=== PATIENT | female | born 2005 | race Caucasian/White ===

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

== ENCOUNTER 2024-05-16 16:50 | Emergency (ER) | payer BC, SELFPAY ==
--- OUTSIDE RECORDS SUMMARY | 2024-05-16 16:52 | XMS_ITS | Encounter Summary ---
Author Organization [facility] Address [address] [address] Care Team Providers Care Food Processor Name Role Phone Asked, Do Not Notify Primary Care Provider Unava ilable Encounter Details Date Type Department Care Team (Late st Contact Info) Description 10/01/2017 External Data Docume ntation Only Social History Tobacco Use Types Packs/Day Years Used Date Smoking Tobacco: Never Assessed Comments Unknown Sex and Gender Information Value Date Recorded Sex Assigned at Not on file Legal Sex Female 8:27 PM MDT Gender Identity Not on file Sexual Orientation Not on file documented as of this encounter Plan of Treatment Not on file documented as of this encounter Visit Diagnoses Not on filedocumented in this encounter Care Teams Food Processor Relationship Specialty Start Date End Date Asked, Do Not Notify PCP - General Internal Medicine 07/18/23 documented as of this encounter
--- OUTSIDE RECORDS SUMMARY | 2024-05-16 16:52 | XMS_ITS | Encounter Summary ---
Author Organization [facility] Address [address] [address] Care Team Providers Care Technical Cable Jointer Name Role Phone Asked, Do Not Notify Primary Care Provider Unava ilable Reason for Visit * Reason Comments Schedule Appointment Encounter Details Date Type Department Care Team (Late st Contact Info) Description 06/18/2023 Nurse Triage [facility] - [address] [id number] Ryan Pendleton MD [address] [facility] [address] [place], [place] [id number] Schedule Appointment Social History Tobacco Use Types Packs/Day Years Used Date Smoking Tobacco: Never Assessed Comments Unknown Sex and Gender Information Value Date Recorded Sex Assigned at Not on file Legal Sex Female 8:27 PM MDT Gender Identity Not on file Sexual Orientation Not on file documented as of this encounter Progress Notes * Keyla Lomeli - 06/28/2023 4:10 PM MDT Uploaded medical records for this patient that were faxed to [facility] instead. Under Media tab, octaviano consult notes. * Ernestina Gan ATC - 06/18/2023 2:00 PM MDT After reviewing the chart, I called the patient's father to discuss. He stated that she is currently In [facility] at [facility] and will be back in July. She has an MRI that they are trying toget pushed to us for review. I let him know that we should send this on to Dr. Pendleton for review and will reach back out by Sunday at the latest to discuss the plan. They are hoping to get an idea of scheduling surgery if needed before the July appointment. * Yoanna Gaines - 06/18/2023 11:21 AM MDT Patient Line Reason for message: Scheduling Request What type of an appointment does the patient want? Right knee injury Why was an appointment not scheduled? Other DT did not pull Dr. Pendleton. Patient questions/concerns: Peter called to get Huan scheduled with Dr. Pendleton. Please Advise. Thanks Team! If needed, can we contact you through [facility]?: No Patient's [facility] [facility] Patient's Provider: Ryan Pendleton MD Caller's Name: huan Caller's Relationship to patient: father Best call back #: [facility] [phone] (home) Best time to call: anytime Is it OK to leave a detailed message?: Yes Tool Filer Name: Yoanna Gaines Agent documented in this encounter Plan of Treatment Not on file documented as of this encounter Visit Diagnoses Not on filedocumented in this encounter Care Teams Technical Cable Jointer Relationship Specialty Start Date End Date Asked, Do Not Notify PCP - General Internal Medicine 07/18/23 documented as of this encounter
[2024-05-16 16:53] VITALS: BP 138/82; PULSE 108; RESP 18; TEMP 38.3; O2SAT 98; BMI 27.5
--- OUTSIDE RECORDS SUMMARY | 2024-05-16 16:53 | XMS_ITS | Encounter Summary ---
Author Organization [facility] Address [address], [place] [address] Care Team Providers Care Dental Professional Name Role Phone Asked, Do Not Notify Primary Care Provider Unava ilable Reason for Visit * Rehabilitation (Routine) - Authorized Specialty Diagnoses / Procedures Referred By Alize díaz Referred To Contact Rehabilitation Therapy Diagnoses Acute pain of right knee Ryan Pendleton MD [address] [facility] [address] [facility] [address] [place] [address] Phone: tel: fax: [facility] [address] [facility] [address] [facility] [address] [place] [address] Phone: tel: fax: Referral ID Status Reason Start Date Expiration Date Visits Requested Visits Authorized [id number] Authorized Specialty Services Required 08/13/2023 08/11/2024 20 Encounter Details Date Type Department Care Team (Latest Contact Info) Description 05/01/2024 12:45 PM MDT Rehab Therapy Treatment [facility] [address] [facility] [address] [facility] [address] [place] [phone] Sacha Winters, PT [address] [phone] PT - Knee pain (Primary Dx) Social History Tobacco Use Types Packs/Day Years Used Date Smoking Tobacco: Never Alcohol Use Standard Drinks/Week Comments Yes 3 (1 standard drink = 0.6 oz pur e alcohol) PHQ-2 Answer Date Recorded PHQ-2 SCORE 0 01/16/2024 Comments Unknown Sex and Gender Information Value Date Recorded Sex Assigned at Not on file Legal Sex Female 8:27 PM MDT Gender Identity Not on file Sexual Orientation Not on file documented as of this encounter Progress Notes * Sacha Winters, PT - 05/01/2024 12:45 PM MDT Images from the original note were not included. Rehab Therapy Note Type This is a(n): Visit Note Occurrence Data - PT Onset Date: 06/02/23 Start of Care Date: 07/19/23 Last Review Date: 07/19/23 Visits From Start Of Care: 17 Date of surgery: 07/30/23 Authorized visit /unit tracking: ? 16 + what was used at [facility] / Assessment Sherrie is a 19 y.o. female. The encounter diagnosis was PT - Knee pain. Biodex testing today revealed significant improvement in quad strength. She is very close but not meeting criteria of less than 10 % quad deficit. Plan The patient agrees to the plan of care. Planned interventions: progression of home exercise program, therapeutic exercises, neuromuscular reeducation, functional training sport specific Recommended frequency duration: (as clinic access allows (busy clinic) while she is in town for college winter break) Biodex testing Subjective / History of Present Illness Pain and Symptoms Location of pain: R knee Current pain level: 0 Maximum pain level in the last 24 hours: 2 (twinge after run for ~ 30 min.) Minimum pain level in the last 24 hours: 0 Total: 2 # of Rows: 3 AVG Pain Score: 0.67 Sherrie reports that she is here for a second round of return to sport testing. She is eager to return to rugby. Objective Home Ex/ Home Instructions: Access Code: [email or web address] Lower Extremity Functional Scale LEFS-INTERIM score (manual entry): 72 SL hop test - R: 1.04 m L: 1.04 m 4% deficit Triple hop - R: 3.05m L: 3.2m 5% deficit Therapeutic Exercise Therapeutic ex 1: Biodex Testing - 60 deg/sec, 180 deg/sec, 300 deg/sec There were no vitals filed for this visit. Time Per Procedure Time Per Procedure -- Timed THERAPEUTIC EX : 45 min Total TIMED Procedure Minutes: 45 min Total TREATMENT Minutes: 45 min Total Treatment Time Start Time: 0915 End Time: 1000 Total (minutes): 45 Student Participation This note will serve as discharge documentation if patient does not return to therapy within 90 days. documented in this encounter Plan of Treatment Not on file documented as of this encounter Visit Diagnoses Diagnosis PT - Knee pain- Primary Pain in joint, lower leg documented in this encounter Additional Health Concerns Assessment Noted Time PHQ-2 Depression Total Score: 0 01/16/20 24 2:00 PM MST documented as of this encounter Care Teams Dental Professional Relationship Specialty Start Date End Date Asked, Do Not Notify PCP - General Internal Medicine 07/18/23 documented as of this encounter
--- OUTSIDE RECORDS SUMMARY | 2024-05-16 16:53 | XMS_ITS | Clinical Summary ---
Author Organization [facility] Address [address] [place] [address] Care Team Providers Care Psych Therapist Name Role Phone Katie Jiménez MD Primary Care Provider [phone] Allergies No known active allergies Medications No known medications Immunizations Immunization Administration Dates Next Due COVID-19 vaccine ([employer] NTech 30mcg/0.3mL) BLESSING BURNETT 02/08/2021 DTaP 04/20/2009,09/19/2005,2004 [id number] (Pediarix) 2004,2004 HIB PRP-T (ActHIB,Hiberix) 04/21/2005,2004 ,2004 HPV 9 (Gardasil 9) 05/15/2016,08/31/2015, 016 Hepatitis A (Peds) 04/24/2007,05/08/2006 Hepatitis B (Peds) 04/21/2005,2004, 005 Inactivated Polio Vaccine 04/20/2009,09/2005,2004,06/21 Influenza A (H1N1), Inactivated 12/08/2008 Influenza A (H1N1), Inactiva melissa (Age >=3 Years) 01/20/2009 Influenza Virus, Unspecified 01/24/2005,12/24/19 05 Influenza, IIV3 (Age 6-35 mos) 12/13/2006,2005 Influenza, IIV3 (Age >=3 years) 12/31/2007 Influenza, Injectable, Mdck, Quadrivalent, W/preservative 12/13/2022 Influenza,LAIV3 Live Intrana sheba (Flumist) 11/23/2011,11/30/2010 MMR 04/20/2009,04/21/2005 Meningococcal B 07/07/2022,05/15/2022 Meningococcal Vaccine (Menactra) 06/25/2020,06/12 Pneumococcal conj 7-Valent (Prevnar 7) 0 04/21/2005,2004,2004,06/21 Tdap, Unspecified 06/23/2015 Varicella Vaccine 04/20/2009,04/21/2005 Social History Tobacco Use Types Packs/Day Years Used Date Smoking Tobacco: Never Smokeless Tobacco: Never Tobacco Cessation:Counseling Given: Yes Social Connections Answer Date Recorded Frequency of Communication with Friends and Fami ly Not on file 06/05/2023 Comments Unknown Sex and Gender Information Value Date Recorded Sex Assigned at Not on file Legal Sex Female 10:39 AM CDT Gender Identity Not on file Sexual Orientation Not on file Obstetrics History Last Filed Vital Signs Vital Sign Reading Time Taken Comments Blood Pressure 116/75 06/05/2023 2:36 PM CDT Pulse 90 06/05/2023 2:36 PM CDT Temperature - - Respiratory Rate - - Oxygen Saturation 97% 06/05/2023 2:36 PM CDT Inhaled Oxygen Concentration - - Weight - - Height - - Body Mass Index - - Plan of Treatment Health Maintenance Due Date Last Done Comments Well Child Check for age 3-20 03/20/2007 Depression screening for age 12+ 2016 HIV for age 15-65 04/18/2019 Chlamydia for age 16-24 2020 BMI (ht and wt on same day) for age 18+ 2022 Hepatitis C screening for age 18-79 2022 COVID-19 vaccine series ( season) 2023 12/13/2022, 02/08/2021, 06/04/2020, Additional history exists Influenza Vaccine (Season Ended) 2024 12/13/2022, 11/23/2011, 11/30/2010, Additional history exists Tetanus booster 06/22/2025 06/23/2015 Pneumococcal series for age 6-49 Aged Out 04/21/2005, 2004, 2004, Additional history exists No longer eligible based on patient's age to complete this topic Tdap Completed 06/23/2015 HPV series for age 9-26 Completed 05/16/19 17, 08/31/2015, 06/23/2015 Meningococcal series for age 11-21 Completed 06/25/2020, 06/23/2015 Insurance [facility] Care Teams Psych Therapist Relationship Specialty Start Date End Date Katie Jiménez MD [address] [place] [address] PCP - General Pediatric 02/19/24
--- OUTSIDE RECORDS SUMMARY | 2024-05-16 16:53 | XMS_ITS | Clinical Summary ---
Author Organization [facility] Address [address] [address] Phone Care Team Providers Care Survey Engineer Name Role Phone Katie Jiménez M.D. Primary Care Provider [phone] Source Comments [facility], [place], [place] is fully implemented on [employer]. [facility] Allergies No known active allergies Medications * This document contains information received from the source organization and may not represent a complete record from that organization. * Be aware that medications may not be up to date as of this document. Always verify current medications with patient. triamcinolone acetonide (KENALOG) 0.1 % Ointment Apply to affected area twice a day 1 Tube 1 Active Additional Information Patient not taking.Reason: Therapy Complete, Informant: Patient, Reported on 12/23/2020 tretinoin (RETIN-A) 0.05 % Cream Apply pea-sized amount to entire face at bedtime. Start every other night x 2wks, then nightly 45 g 5 1 Active Advil 200 MG Tab 200 mg by mouth Acti ve Active Problems No known active problems Resolved Problems Problem Noted Date Diagnosed Date Resolved Date Increased BMI 04/26/2014 05/22/2022 Immunizations Immunization Administration Dates Next Due DTP (Diphtheria/Tetanus/Pertusis) 2005,2004,2004,06/21 Diptheria/Tetanus/Acellular Pertussis) 0 Flumist Vaccine (flu clinic) 11/23/2011 Hep A Vaccine Ped/Adol(Hepatitis A) 04/24/2007,0 05/08/2006 Hep B Vaccine (Hepatitis B) 04/21/2005, 5,2004 Hib (PRP-T) Immunization (ActHib/Hiberix) (Haemophilus b) 04/21/2005,2004,2004 Human Papilloma Virus Nonavalent (HPV) 7,08/31/2015,06/23/2015 IPV (Inactivated Poliovirus) Vaccine 10/2009,09/19/2005,2004,06/21 Influenza A (H1N1) 2009 inje ctable Over 36 Mon 12/08/2008 Influenza Intranasal Vaccine , Trivalent 11/30/2010 Influenza Quad 0.5ML (Pres Free) 022,11/06/2020,10/31/2019,12/01 Influenza Quad 0.5ml 36mo & Up (Flu Clinic) 11/30/2014 Influenza Quad 0.5ml 36mo & Up (Pres Free) 12/02/2015 Influenza Quad 0.5ml 36mo & Up (Pres Free)(Flu Clinic) 10/20/2017,11/04/2016 Influenza Quad Intranasal 10/29/2012 Influenza Quad Intranasal (Flu Clinic) 4 Influenza, Trivalent, PF 12/23/2009 MMR (Measles/Mumps/Rubella) Vaccine 04/20/2009,0 04/21/2005 Meningococcal Group B (Bexsero) 07/07/2022,05/15 Meningococcal MCV4 (Menactra) 06/25/2020, 016 Pfizer (Purple Cap-12 years and older)-COVID-19, mRNA, LNP-S, PF, 30 mcg/0.3 mL dose 02/08/2021,06/04/2020,05/14/2020 Prevnar 7 (pneumococcal conj ugate vaccine, 7 valent) 2004,2004 TDAP (7 YR or older) Immunization 06/23/2015 Varicella Vaccine 04/20/2009,04/21/2005 influenza a (h1n1) 2009 inje ctable vaccine 6-35 months 01/20/2009 Surgical History Surgery Date Site/Laterality Comments NEGATIVE SURGICAL HISTORY Family History Relation Status Comments Brother Alive Father Alive Mother Alive Sister Alive Social History Tobacco Use Types Packs/Day Years Used Date Smoking Tobacco: Never Smokeless Tobacco: Never PHQ-2 Answer Date Recorded PHQ-2 Total Score 2 05/15/2022 PHQ-9 Answer Date Recorded PHQ-9 Score 2 05/15/2022 Community Connections Answer Date Recor ded Caregiver PCP help Not on file 08/15/2018 Child PCP help Not on file 08/15/2018 Potential social isolation Not assesed 08/15 Appointment help Not on file 08/15/2018 Benefits help needed: Not on file 08/15/2018 Education concerns Not assesed 08/15/2018 Alcohol / Marijuana Use Answer Date Rec orded Alcohol/Marijuana- Caregiver: Not on file Alcohol last 12 mos: Not on file 05/09/2020 Marijuana- Patient Use: No 05/10/19 21 Tobacco Use Answer Date Recorded Tobacco: Caregiver Use Not on file Tobacco- Patient Use: No 12/25/2021 Financial Resource Strain Answer Date R ecorded Trouble making ends meet? No 2022 Trouble filling perscriptions? No 0 10/01/2022 Depression risk Answer Date Recorded Caregiver Depression: Not on file 05/15/2022 Caregiver suicidal thoughts: Not on file 04/2022 PHQ-9 Total Score (calculated) 2 0 05/15/2022 Last EPDS Total Score Not on file 05/15/2022 Last EPDS self harm item: Not on file 2022 Food Insecurity Answer Date Recorded Food Insecurity - Worry Not on file 05/19/19 24 Food Insecurity - Inability No 07/2023 Transportation Answer Date Recorded Transportation Not on file 05/08/2024 [address]80 05/08/2024 Substance Use Answer Date Recorded Substances- Caregiver Use Not on file 2022 Substances- Patient Use: No 023 Comments No Sex and Gender Information Value Date Recorded Sex Assigned at Not on file Legal Sex Female 12:35 PM MDT Gender Identity Not on file Sexual Orientation Not on file Last Filed Vital Signs Vital Sign Reading Time Taken Comments Blood Pressure 116/56 05/15/2022 8:43 AM MDT Pulse 98 06/30/2022 2:35 PM MDT Temperature 37.6 C (99.6 F) 06/30/2022 2:35 PM MDT Respiratory Rate 20 06/30/2022 2:35 PM MDT Oxygen Saturation 100% 06/30/2022 2:35 PM MDT Inhaled Oxygen Concentration - - Weight 64.3 kg (141 lb 12.8 oz) 06/30/2022 2:35 PM MDT Height 163.2 cm (5' 4.25) 05/15/2022 8:43 AM T Body Mass Index - - Plan of Treatment Health Maintenance Due Date Last Done Comments Depression Screening 04/18/2015 COVID-19 Vaccine ( season) 2023 10/23/2021, 02/08/2021, 06/04/2020, Additional history exists Influenza Vaccine (#1) 2023 2, 11/06/2020, 10/31/2019, Additional history exists DTaP,Tdap,and Td Vaccines (7 - Td or Tdap) 06/22/2025 06/23/2015, 04/20/2009, 09/19/2005, Additional history exists Pneumococcal Vaccine (PCV): Pediatric 0-5y and At-Risk 6-64y Aged Out 2004, 2004 No longer eligibl e based on patient's age to complete this topic HIB vaccines Completed 04/21/2005, 09/2004, 2004 Hep B Vaccines Completed 04/21/2005, 09/2004, 2004 Hep A Vaccines Completed 04/24/2007, 05/08/2006 IPV Vaccines Completed 04/20/2009, 09/2005, 2004, Additional history exists MMR Vaccines Completed 04/20/2009, 04/21/2005 Varicella Vaccines Completed 04/20/2009, 04/21/2005 HPV Vaccine Completed 05/15/2016, 08/12, 06/23/2015 Meningococcal ACWY Vaccine Completed 06/25/2020, Meningococcal B Vaccine Completed 07/07/2022, 05/15 [place] [id number] [place] [id number] [employer]TH [employer] Care Teams Survey Engineer Relationship Specialty Start Date End Date Katie Jiménez M.D. [address] [place] [address] PCP - General 10/11/23
--- OUTSIDE RECORDS SUMMARY | 2024-05-16 16:53 | XMS_ITS | Clinical Summary ---
Author Organization [facility] Address [address] [address] Care Team Providers Care Donkey Doctor Name Role Phone Asked, Do Not Notify Primary Care Provider Unava ilable Allergies No known active allergies Medications acetaminophen (TYLENOL PO) Active IBUPROFEN PO Active ALBUTEROL IN Active ondansetron (ZOFRAN) 4 mg tablet Take 1 tablet by mouth 4 times daily as needed for Nausea for Prevention of Post-Operative Nausea and Vomiting. 30 tablet 4 Active oxyCODONE (ROXICODONE) 5 mg immediate release tablet Take 1-2 tablets by mouth every 6 hours as needed for Acute Pain. 40 tablet 4 Active Active Problems Problem Noted Date Diagnosed Date Complete tear of right ACL 07/23/2023 PT - Knee pain 07/19/2023 Encounters Date Type Department Care Team Description 05/01/2024 12:45 PM MDT Rehab Therapy Treatment [facility] - [facility] [address] [address] Sacha Winters, PT PT - Knee pain (Primary Dx) from Last 3 Months Family History Medical History Relation Comments Anesth problems Neg Hx Social History Tobacco Use Types Packs/Day Years [...] Sign Reading Time Taken Comments Blood Pressure 113/67 07/30/2023 4:10 PM MDT Pulse 87 07/30/2023 4:10 PM MDT Temperature 36.6 C (97.9 F) 07/30/2023 4:10 PM MDT Respiratory Rate 18 07/30/2023 4:10 PM MDT Oxygen Saturation 97% 07/30/2023 4:10 PM MDT Inhaled Oxygen Concentration - - Weight 74.7 kg (164 lb 9.6 oz) 07/30/2023 7:16 A M MDT Height 162.6 cm (5' 4) 07/30/2023 7:16 AM MDT Body Mass Index 28.25 07/30/2023 7:16 AM MDT Plan of Treatment Health Maintenance Due Date Last Done Comments Chlamydia/Gonorrhea Screening 2004 Syphilis Screening 2004 HIV Screening (Ages 15-65/One-time) 04/18/2019 Hepatitis C Antibody Screening 2022 Medical Durable Power of [facility] (MDPOA) 2022 Influenza Vaccine (#1) 2023 , 11/30/2014, 11/08/2013, Additional history exists SARS-COV2 (COVID-19) Vaccine ( season) 2023 10/23/2021, 02/08/2021, 06/04/2020, Additional history exists Tdap/Td Vaccine (4 - Td or Tdap) 06/22/2025 06/23/2015, 2004, 2004 Hepatitis B Vaccine Adult Completed 2005, 2004, 2004, Additional history exists HPV Vaccine Adult Completed 05/15/2016, , 06/23/2015 MCV Vaccines Completed 06/25/2020, 06/23/2015 Medical Devices Implanted Type Area Php Mysql Developer Device Identifier Shelf Expiration Date Model / Serial / Lot [place] Sut Jgrstch Mxbrd 2-0 5 - [id number] Implanted:Qty: 3 on 07/30/2023 by Ryan Pendleton MD at [facility] Right: Knee [employer] ZMMR 04/03/2027 [id number] / / [id number] Screw 2.0 Softsilk 7x20mm - [id number] Implanted:Qty: 1 on 07/30/2023 by Ryan Pendleton MD at [facility] Right: Knee [employer] [facility] 09/13/2027 [id number] / / [id number] Scr Intfr Ti 20mm 8mm 1.5mm - [id number] Implanted:Qty: 1 on 07/30/2023 by Ryan Pendleton MD at [facility] Right: Knee [employer] [facility] 11/17/2027 [id number] / / [id number] Insurance CU ANTHEM EXCLUSIVE CU ANTHEM EXCLUSIVE Advance Directives Healthcare Agents on File Name Relationship [facility] Communication Peter Rg Medical Decision Maker Care Teams Donkey Doctor Relationship Specialty Start Date End Date Asked, Do Not Notify PCP - General Internal Medicine 07/18/23
--- NOTE | 2024-05-16 17:05 | ED.GENADULT ---
HPI - General Adult General Date Seen: 05/16/24 Chief complaint: Fever Stated complaint: Neck pain, fever Time Seen by Provider: 05/16/24 16:59 History of Present Illness HPI narrative: Patient is a generally healthy 19-year-old who presents for evaluation of fever which has been present for couple of days. She notes pain in the anterior and lateral neck which she relates to swollen lymph nodes. She denies sore throat. She has been taking Tylenol but has not had any today. She has not had any difficulty swallowing, denies cough, abdominal pain, vomiting, diarrhea, urinary symptoms. Recent travel only to [place]. No joint pains or unusual rashes. She was seen at [facility] and strep screen was negative per her report. She does not smoke or drink, denies any substance use. Related Data Home Medications ?Medication ?Instructions ?Recorded ?Confirmed albuterol sulfate 90 mcg/actuation 1 inh inhalation Q4-6H PRN 03/23/23 05/16/24 breath activated powder inhaler Allergies Allergy/AdvReac Type Severity Reaction Status Date / Time amoxicillin Allergy Unknown Verified 05/16/24 16:58 Review of Systems Status of ROS: Reports: 6 or more systems reviewed and unremarkable except as noted in History and below [facility] Social History Smoking Status: Never smoker Do you use any of these nicotine containing products: None Non-prescribed substance use: denies use service: No Exam Narrative: Exam Narrative: Vital signs reviewed In general, alert, nontoxic young woman. Voice is normal. Head: Normocephalic, atraumatic. Eyes: Sclera clear. Pupils equal and reactive. ENT: Mucous membranes moist. Throat is normal. Neck: Supple, no meningeal signs. She has tenderness over this current sternocleidomastoid muscle and anterior neck, I do not feel particularly enlarged lymph nodes, no parotid gland enlargement. Difficult to do a very thorough exam as she says it is too tender to touch. No posterior tenderness or adenopathy. Heart: Mildly tachycardic, regular. No murmur. Lungs: Clear. No increased work of breathing, crackles or wheezes. Abdomen: Soft, nontender to palpation. Extremities: Well perfused, pulses intact. No significant edema. Neurologic: Alert, conversant. Speech fluent, face symmetric. Moves all extremities equally. Skin: Warm, dry well perfused. Affect: Normal. Const: Vital Signs, click to edit/add: Vital Signs - 24 hr 05/16/24 16:53 Temperature 101 F H Pulse Rate [Right Pulse Oximeter] 108 H Respiratory Rate 18 Blood Pressure [Ri ght Upper Arm] 138/82 Pulse Oximetry 98 Oxygen Delivery Me thod Room Air Course Course ED Course: We gave her some ibuprofen and checked a viral swab. This was negative. I did elect to get some blood work, her CBC showed a mildly elevated white blood cell count of 13, CRP was elevated at 16. She is well-appearing, her only complaint is that of painful adenopathy in her neck. She is not having any difficulty swallowing, does not have a sore throat, does not have any evidence of abscess, no meningeal signs or other concerning features on exam. Discussed options of CT scan to further evaluate her neck versus a trial of antibiotics for possible lymph had itis. She declined imaging at this time, would prefer to try antibiotics. Given that she is entirely nontoxic I think that is a reasonable course of action. I prescribed Keflex. She can continue to use ibuprofen and/or Tylenol. Temperature was improved here 99, tachycardia resolved. Reviewed reasons to return such as more severe pain or swelling, difficulty swallowing or breathing, or any other worsening or new symptoms. If not gradually improved over the next week, should be seen by primary care. Vital Signs Vital signs: Initial Vital Signs Temperature 101 F H 05/16/24 16:53 Temperature Source Temporal Artery Scan 05/16/24 16:53 Pulse Rate 108 H 05/16/24 16:53 Pulse Rhythm Regular 05/16/24 16:53 Pulse Strength 3+ Normal 05/16/24 16:53 Respiratory Rate 18 05/16/24 16:53 Blood Pressure 138/82 05/16/24 16:53 Blood Pressure Mean 100 05/16/24 16:53 Blood Pressure Position Sitting 05/16/24 16:53 Pulse Oximetry 98 05/16/24 16:53 Oxygen Delivery Method Room Air 05/16/24 16:53 Vital Signs Temperature 101 F H 05/16/24 16:53 Pulse Rate 108 H 05/16/24 16:53 Respiratory Rate 18 05/16/24 16:53 Blood Pressure 138/82 05/16/24 16:53 Pulse Oximetry 98 05/16/24 16:53 Oxygen Delivery Method Room Air 05/16/24 16:53 Temperature 99.1 F 05/16/24 18:47 Pulse Rate 90 05/16/24 18:09 Respiratory Rate 18 05/16/24 18:09 Blood Pressure 127/76 05/16/24 18:09 Pulse Oximetry 98 05/16/24 18:09 Oxygen Delivery Method Room Air 05/16/24 18:09 Medications Administered Medications: Discontinued Medications Generic Name Dose Route Start Last Admin Trade Name Freq PRN Reason Stop Dose Admin Ibuprofen 400 mg 05/16/24 17:04 05/16/24 17:09 Ibuprofen 200 Mg Tablet PO 05/16/24 17:05 400 mg ONCE ONE Administration Medical Decision Making Lab Data Labs: Lab Results 05/16/24 05/16/24 Range/Units 17:00 18:19 WBC 13.69 H (4.50-11.00) K/uL RBC 4.80 (4.00-5.20) m/uL Hgb 13.5 (12.0-16.0) gm/dL Hct 41.5 (33.0-51.0) % MCV 87 (80-100) fL MCH 28 (26-34) pg MCHC 33 (32-36) gm/dL RDW Coeff of Khurram 13.0 (11.5-15.5) % Plt Count 292 (140-440) K/uL Neut % (Auto) 77.6 H (42.0-72.0) % Lymph % (Auto) 12.7 L (20-44) % [place] % (Auto) 8.8 (0.0-11.0) % Eos % (Auto) 0.4 (0.0-7.0) % Baso % (Auto) 0.4 (0.0-3.0) % Neut # (Auto) 10.60 H (1.7-7.0) K/uL Lymph # (Auto) 1.70 (0.90-2.90) K/uL [place] # (Auto) 1.20 H (0.00-0.90) K/UL Eos # (Auto) 0.10 (0.00-0.50) K/uL Baso # (Auto) 0.10 (0.00-0.30) K/uL Abs Immat Gran (auto) 0.00 (0.00-0.30) K/uL Imm/Tot Granulo (auto) 0.1 % C-Reactive Protein 16.0 H (0.5-1.0) mg/dL Urine Color Yellow (Yellow) Urine Appearance Clear (Clear) Urine pH 7.0 (5.0-8.5) Ur Specific [place] 1.025 (1.000-1.030) Urine Protein 1+ A (Negative) Urine Glucose (UA) Negative (Negative) Urine Ketones 1+ A (Negative) Urine Blood Negative (Negative) Urine Nitrite Negative (Negative) Urine Bilirubin 1+ A (Negative) Urine Urobilinogen 0.2 (0.2-1.0) Ur Leukocyte Esterase Negative (Negative) Urine RBC 0-2 (0-2) Urine WBC 0-2 (0-5) Ur Squamous Epith Cells Many A (None-Few) Amorphous Sediment Moderate A (None) Urine Bacteria Moderate A (None) SARS-CoV-2 (PCR) Negative SARS-CoV-2 (Negative) Influenza Type A (PCR) Negative PCR FLU A (Negative) Influenza Type B (PCR) Negative PCR FLU B (Negative) RSV (PCR) Negative PCR RSV (Negative) Discharge Plan Discharge Clinical Impression: Acute lymphadenitis Patient Disposition: Home, Self-Care Condition: Improved Instructions: Adenitis (ED) Additional Instructions: Take Keflex as prescribed. I would expect that you will see some improvement over the next 2-3 days. If you are worsening, have increasing pain, persistent high fevers, increased swelling or redness, or develop severe sore throat, return to the ER for recheck. If not any better in 7 days, follow up in clinic. Prescriptions: No Action albuterol sulfate 90 mcg/actuation aerosol powdr breath activated 1 inh inhalation Q4-6H PRN Follow Up/Referrals: Provider,Not a Local [Primary Care Provider] - Stand Alone Forms: [employer] Info Instructions
[2024-05-16] MEDS: IBUPROFEN 200 MG TABLET 400 MG PO (17:09)
--- OUTSIDE RECORDS SUMMARY | 2024-05-16 17:21 | XMS_ITS | Encounter Summary ---
Author Organization [facility] and [facility] Address [address] [address] Care Team Providers Care Nuclear Engineer Name Role Phone Asked, Do Not Notify Primary Care Provider Unava ilable Reason for Visit * Reason Comments Schedule Appointment Encounter Details Date Type Department Care Team (Late st Contact Info) Description 06/18/2023 Nurse Triage [facility] - [address] [id number] Ryan Pendleton MD [address] [facility] [address] [place], [place] [id number] Schedule Appointment Social History Tobacco Use Types [...] He stated that she is currently In [facility] and will be back in July. She [...] If needed, can we contact you through [facility]?: No Patient's Clinic: [facility] Patient's Provider: Ryan Pendleton MD Caller's Name: huan Caller's Relationship to patient: father Best call back #: [facility] [phone] (home) Best time to call: anytime Is it OK to leave a detailed message?: Yes Cake Former Name: Yoanna Gaines Agent documented in this encounter Plan of Treatment Not on file documented as of this encounter Visit Diagnoses Not on filedocumented in this encounter Care Teams Nuclear Engineer Relationship Specialty Start Date End Date Asked, Do Not Notify PCP - General Internal Medicine 07/18/23 documented as of this encounter
--- OUTSIDE RECORDS SUMMARY | 2024-05-16 17:21 | XMS_ITS | Clinical Summary ---
Author Organization [facility] Address [address] [place] [address] Care Team Providers Care Manager Utility Name Role Phone Katie Jiménez MD Primary Care Provider [phone] Allergies No known active allergies Medications No known medications Immunizations Immunization Administration Dates Next Due COVID-19 vaccine ([employer] NTech 30mcg/0.3mL) BLESSING BURNETT 02/08/2021 DTaP 04/20/2009,09/19/2005,2004 [id number] (Pediarix) 2004,2004 HIB PRP-T (ActHIB,Hiberix) 04/21/2005,2004 ,2004 [...] for age 11-21 Completed 06/25/2020, 06/23/2015 Insurance [facility] Care Teams Manager Utility Relationship Specialty Start Date End Date Katie Jiménez MD [address] [place] [address] PCP - General Pediatric 02/19/24
--- OUTSIDE RECORDS SUMMARY | 2024-05-16 17:21 | XMS_ITS | Clinical Summary ---
Author Organization [facility] Address [address], [place] [address] Phone Care Team Providers Care Dye Weigher Helper Name Role Phone Katie Jiménez M.D. Primary Care Provider [phone] Source Comments [facility], [place], [place] is fully implemented on [employer]. [facility] Allergies No known active allergies Medications * [...] Date Recorded Transportation Not on file 05/08/2024 [id number] 05/08/2024 Substance Use Answer Date Recorded Substances- [...] Meningococcal B Vaccine Completed 07/07/2022, 05/15 [place] [id number] [place] [phone] ANTHEM BCBS ANTHEM BCBS ANTH [employer] ANTH [employer] Care Teams Dye Weigher Helper Relationship Specialty Start Date End Date Katie Jiménez M.D. [address] [place] [address] PCP - General 10/11/23
--- OUTSIDE RECORDS SUMMARY | 2024-05-16 17:21 | XMS_ITS | Encounter Summary ---
Author Organization [facility] and [facility] Address [address], [place] [address] Care Team Providers Care Stock Taker Name Role Phone Asked, Do Not Notify Primary Care Provider Unava ilable Reason for Visit * Rehabilitation (Routine) - Authorized Specialty Diagnoses / Procedures Referred By Alize díaz Referred To Contact Rehabilitation Therapy Diagnoses Acute pain of right knee Ryan Pendleton MD [address] [facility] [address] [facility] [[email or web address] [address] [place] [address] Phone: tel: fax: [facility] [address] [facility] [place] [address] [facility] [address] [place] [address] Phone: tel: fax: Referral ID Status Reason Start Date Expiration Date Visits Requested Visits Authorized [id number] Authorized Specialty Services Required 08/13/2023 08/11/2024 20 Encounter Details Date Type Department Care Team (Latest Contact Info) Description 05/01/2024 12:45 PM MDT Rehab Therapy Treatment [facility] [address] [facility] [place] [address] [facility] [address] [place] [id number] Sacha Winters, PT [address] [phone] PT - Knee pain (Primary Dx) Social [...] ? 16 + what was used at [facility] / Assessment Sherrie is a 19 y.o. [...] Objective Home Ex/ Home Instructions: Access Code: [email or web address] Lower Extremity Functional Scale LEFS-INTERIM score (manual [...] documented as of this encounter Care Teams Stock Taker Relationship Specialty Start Date End Date Asked, Do Not Notify PCP - General Internal Medicine 07/18/23 documented as of this encounter
--- OUTSIDE RECORDS SUMMARY | 2024-05-16 17:21 | XMS_ITS | Clinical Summary ---
Author Organization [facility] Address [address], [place] [address] Care Team Providers Care Assistant Activities Director Name Role Phone Asked, Do Not Notify [...] 05/01/2024 12:45 PM MDT Rehab Therapy Treatment [facility] - [facility] [address] [place] [address] [phone] Sacha Winters, PT PT - Knee pain [...] Antibody Screening 2022 Medical Durable Power of [facility] (MDPOA) 2022 Influenza Vaccine (#1) 2023 , 11/30/2014, 11/08/2013, Additional history exists SARS-COV2 (COVID-19) Vaccine ( season) 2023 10/23/2021, 02/08/2021, 06/04/2020, Additional history exists Tdap/Td Vaccine (4 - Td or Tdap) 06/22/2025 06/23/2015, 2004, 2004 Hepatitis B Vaccine Adult Completed 2005, 2004, 2004, Additional history exists HPV Vaccine Adult Completed 05/15/2016, , 06/23/2015 MCV Vaccines Completed 06/25/2020, 06/23/2015 Medical Devices Implanted Type Area Technician Biological Health Device Identifier Shelf Expiration Date Model / Serial / Lot [place] Sut Jgrstch Mxbrd 2-0 5 - [id number] Implanted:Qty: 3 on 07/30/2023 by Ryan Pendleton MD at [facility] Right: Knee [employer] ZMMR 04/03/2027 [id number] / / [id number] Screw 2.0 Softsilk 7x20mm - [id number] Implanted:Qty: 1 on 07/30/2023 by Ryan Pendleton MD at [facility] Right: Knee [employer] [facility] 09/13/2027 [id number] / / [id number] Scr Intfr Ti 20mm 8mm 1.5mm - [id number] Implanted:Qty: 1 on 07/30/2023 by Ryan Pendleton MD at [facility] Right: Knee [employer] [facility] 11/17/2027 [id number] / / [id number] Insurance CU ANTHEM EXCLUSIVE CU ANTHEM EXCLUSIVE Advance Directives Healthcare Agents on File Name Relationship Healthcare Agent [facility] Communication Peter Rg Medical Decision Maker Care Teams Assistant Activities Director Relationship Specialty Start Date End Date Asked, Do Not Notify PCP - General Internal Medicine 07/18/23
--- OUTSIDE RECORDS SUMMARY | 2024-05-16 17:21 | XMS_ITS | Encounter Summary ---
Author Organization [facility] Address [address], [place] [address] Care Team Providers Care Weatherization Technician Name Role Phone Asked, Do Not Notify [...] on filedocumented in this encounter Care Teams Weatherization Technician Relationship Specialty Start Date End Date Asked, Do Not Notify PCP - General Internal Medicine 07/18/23 documented as of this encounter
[2024-05-16 18:03] LABS: PCR FLU A Negative PCR FLU A (Negative); PCR FLU B Negative PCR FLU B (Negative); PCR RSV Negative PCR RSV (Negative); SARS PCR* Negative SARS-CoV-2 (Negative)
[2024-05-16 18:09] VITALS: BP 127/76; PULSE 90; RESP 18; TEMP 37.3; O2SAT 98
[2024-05-16 18:31] LABS: Appearance Urine Clear (Clear); Bilirubin Urine 1+ (Negative); Blood Urine Negative (Negative); Color Urine Yellow (Yellow); Glucose Urine Negative (Negative); Ketones Urine 1+ (Negative); Leukocyte Esterase Urine Negative (Negative); Nitrite Urine Negative (Negative); Protein Urine 1+ (Negative); Specific Gravity Urine 1.025 (1.000-1.030); Urobilinogen Urine 0.2 (0.2-1.0)
[2024-05-16 18:40] LABS: Amorphous Sediment Urine Moderate; Bacteria Urine Moderate; RBC Urine 0-2 (0-2); Squamous Epithelial Cell Urine Many (None-Few); WBC Urine 0-2 (0-5)
[2024-05-16 18:42] LABS: Basophils Percent Auto 0.4 % (0.0-3.0); Eosinophils Percent Auto 0.4 % (0.0-7.0); Hematocrit 41.5 % (33.0-51.0); Hemoglobin* 13.5 gm/dL (12.0-16.0); Immature Granulocytes Pct Auto 0.1 %; Lymphocytes Percent Auto 12.7 % (20-44); Mean Corpuscular HGB Conc 33 gm/dL (32-36); Mean Corpuscular Hemoglobin 28 pg (26-34); Mean Corpuscular Volume 87 fL (80-100); Monocytes Percent Auto 8.8 % (0.0-11.0); Neutrophils Percent Auto 77.6 % (42.0-72.0); Platelet Count* 292 K/uL (140-440); White Blood Count* 13.69 K/uL (4.50-11.00)
[2024-05-16 18:47] VITALS: TEMP 37.3
[2024-05-16 19:00] LABS: Slide Review Reflex No
== END 2024-05-16 19:38 | disposition home or self-care (01) ==
PROVIDERS: Emergency Provider Emergency Medicine
DX: L04.0 Acute lymphadenitis of face, head and neck (principal)
CPT/HCPCS: 36415; 81001; 85025; 86140; 87086; 87631; 99283; 99284; A9270